=== PATIENT | male | born 2000 | race Caucasian/White ===

== ENCOUNTER 2021-07-01 15:30 | Emergency (ER) | payer OTHER ==
[2021-07-01 15:45] VITALS: BP 119/44
--- NOTE | 2021-07-01 16:02 | ED Physician Documentation ---
History of Present Illness - Stated complaint Stated Complaint: COUGH - Chief complaint Chief Complaint: Resp - Additonal information Additional information: 20-year-old male presents emergency department for evaluation of cough that began about 3 weeks ago. He reports that is particularly worse at night wakes him up from sleep. During the day it is mostly dry but occasionally productive with green sputum. No fevers. He did take an at home rapid Covid test which was negative. He is in the [place] and fully vaccinated though not boosted. Patient has had a a lot of nasal congestion. He has taken no medications. Patient reports that his cough feels similar to when he had swimming induced pulmonary edema at the age of 16 from swimming in cold water. No history of asthma. Non-smoker/vapor. No fevers. Review of Systems Constitutional: denies: Fever, Chills Ears: reports: Reviewed and negative Nose: reports: Rhinorrhea / runny nose, Congestion Throat: reports: Reviewed and negative Cardiac: reports: Reviewed and negative Respiratory: reports: Cough. denies: Dyspnea, Hemoptysis, Wheezing GI: reports: Reviewed and negative : reports: Reviewed and negative Skin: reports: Reviewed and negative Musculoskeletal: reports: Reviewed and negative PD PAST MEDICAL HISTORY - Present Medications Home Medications: Ambulatory Orders Medication Instructions Recorded Confirmed No Known Home Medications 07/01/21 07/01/21 - Allergies Allergies/Adverse Reactions: Allergies Allergy/AdvReac Type Severity Reaction Status Date / Time No Known Drug Allergies Allergy Verified 07/01/21 15:45 PD ED PE NORMAL - General General: Alert and oriented X 3, No acute distress - HEENT HEENT: PERRL - Neck Neck: Supple, no meningeal sign, No adenopathy - Cardiac Cardiac: RRR, No murmur, No gallop - Respiratory Respiratory: No respiratory distress - Abdomen Abdomen: Normal bowel sounds, Soft, Non tender - Back Back: No CVA TTP, No spinal TTP - Derm Derm: Normal color, Warm and dry, No rash - Extremities Extremities: No deformity, No tenderness to palpate, Normal ROM s pain - Neuro Neuro: Alert and oriented X 3, 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 Eye Opening: Spontaneous Motor: Obeys Commands Verbal: Oriented GCS Score: 15 - Psych Psych: Normal mood Results - Vitals Vitals: Vital Signs - 24 hr 07/01/21 15:41 Temperature 36.4 C L Heart Rate 63 Respiratory 14 Rate Blood Pressure 119/44 L O2 Saturation 98 Oxygen O2 Source Room air - Rads (name of study) cxr Radiology: EMP read contemporaneously (No acute cardiopulmonary process) PD MEDICAL DECISION MAKING - ED course Complexity details: reviewed results, re-evaluated patient, considered differential, d/w patient ED course: 20-year-old male presents emergency department for evaluation of a productive cough that is especially worse at night. Began about 3 weeks ago. No fevers, no hemoptysis. Fully vaccinated for COVID-19 and has had a negative home test. Patient reports that his cough feels very similar to when he had swimming induced pulmonary edema. Chest x-ray today does not reveal any obvious focal consolidations or findings of pulmonary edema. Room air saturations 100%. Cardiopulmonary auscultation is unremarkable. He does sound fairly congested and given that the nighttime cough is worse I suspect that he has postnasal drip contributing to the symptoms. I am recommending Sudafed during the day as well as Barnard mist nasal spray or Flonase at night. Cough and symptoms not improved with addressing congestion and postnasal drip the patient will return to the ER for second evaluation. Departure - Departure Disposition: 01 Home, Self Care Clinical Impression: Cough, Post-nasal drip Condition: Stable Record reviewed to determine appropriate education?: Yes Comments: Judson you are seen in the emergency department today for a cough that has been present for about 3 weeks. You also have some congestion. As we discussed at the bedside it is likely that you have postnasal drip at night causing your cough to be worse. I am over the next 2 to 3 days I do recommend that you take Sudafed 30 mg in the morning. This will help with the congestion. Prior to going to bed at night you may benefit from using Barnard mist nasal spray or Flonase nasal spray this will help reduce the congestion thus reducing the postnasal drip and nighttime cough. Your chest x-ray was unremarkable. You do not have findings of pulmonary edema or pneumonia. If you find that despite addressing the postnasal drip your cough does not improve, you have fevers, chest pain or sudden shortness of air you are to return to the ER for second evaluation.
--- NOTE | 2021-07-01 16:19 | XRAY Report ---
PROCEDURE: Chest 1 View X-Ray INDICATIONS: chest pain TECHNIQUE: One view of the chest was acquired. COMPARISON: None FINDINGS: Surgical changes and devices: None. Lungs and pleura: No pleural effusions or pneumothorax. Lungs are clear. Mediastinum: Mediastinal contours appear normal. Heart size is normal. Bones and chest wall: No suspicious bony lesions. Overlying soft tissues appear unremarkable. IMPRESSION: No acute cardiopulmonary findings Reviewed by: Aroldo Pastrana MD on 07/01/2021 3:17 PM [place] Approved by: Aroldo Pastrana MD on 07/01/2021 3:17 PM [place] Station ID: [id number]
== END 2021-07-01 16:38 | disposition home or self-care (01) ==
LOC: ED 15:30
DX: U07.1 COVID-19 (principal)
CPT/HCPCS: 99282; 99284

== ENCOUNTER 2021-09-25 11:23 | Emergency (ER) | payer OTHER ==
[2021-09-25] MEDS ORDERED: lidocaine 1% 20 ML MDV SUBQ ONE (12:15)
--- NOTE | 2021-09-25 13:01 | ED Physician Documentation ---
PD HPI LOWER EXT INJURY - Stated complaint Stated Complaint: RT LEG INJ - Chief complaint Chief Complaint: Laceration - History obtained from History obtained from: Patient - History of Present Illness PD HPI LOW EXT INJURY LOCATION: Right, Lower leg Type of injury: Blunt / blow Where injury occurred: Other (GYM) Timing - onset: Today Timing - duration: Hours Timing - details: Abrupt onset, Still present Improved by: Rest, Immobilization Worsened by: Moving, Palpating Associated symptoms: No: Weakness, Numbness, Tingling, Swelling Similar symptoms before: Diagnosis (laceration) Recently seen: Not recently seen - Additional information Additional information: Previously well 20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 When he landed against the box he lacerated the skin right below his knee. He is able to control bleeding comes in now for suturing PD PAST MEDICAL HISTORY - Past Medical History Cardiovascular: None Respiratory: None Neuro: None Endocrine/Autoimmune: None GI: None : None HEENT: None Psych: None Musculoskeletal: None Derm: None - Past Surgical History Past Surgical History: No - Present Medications Home Medications: Ambulatory Orders Medication Instructions Recorded Confirmed No Known Home Medications 07/01/21 07/01/21 - Allergies Allergies/Adverse Reactions: Allergies Allergy/AdvReac Type Severity Reaction Status Date / Time No Known Drug Allergies Allergy Verified 09/25/21 11:33 - Social History Does the pt smoke?: No Smoking Status: Never smoker Does the pt drink ETOH?: No Does the pt have substance abuse?: No - Immunizations Immunizations are current?: Yes PD ED PE NORMAL - Vitals Vital signs reviewed: Yes (normal) - General General: Alert and oriented X 3, No acute distress, Well developed/nourished - HEENT HEENT: Atraumatic, PERRL, EOMI - Respiratory Respiratory: No respiratory distress - Derm Derm: Normal color, Warm and dry, No rash - Extremities Extremities: No deformity, No edema, Other (4cm flap laceration to the anterior upper calf on the right ) - Neuro Neuro: Alert and oriented X 3, 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, No motor deficit, No sensory deficit, Normal speech Eye Opening: Spontaneous Motor: Obeys Commands Verbal: Oriented GCS Score: 15 - Psych Psych: Normal mood, Normal affect Results - Vitals Vitals: Vital Signs - 24 hr 09/25/21 09/25/21 11:30 13:10 Temperature 37.2 C 36.8 C Heart Rate 74 63 Respiratory 14 18 Rate Blood Pressure 121/66 114/42 L O2 Saturation 97 99 Oxygen O2 Source Room air Procedures - Laceration (location) right calf Wound type: Curved, Flap, Into subcut fat, Clean Neurovascular status: Sensory intact, Motor intact, Vascular intact Anesthesia: Lidocaine 1% Wound preparation: Hibiclens, Irrigated copiously NS, Wound explored, To the base Skin layer closure: Nylon, Interrupted, Size #-0 - enter number (4-0) Other: Patient tolerated well, No complications, Neurovascular intact, Dressing applied, Tetanus UTD PD MEDICAL DECISION MAKING - ED course Complexity details: re-evaluated patient, considered differential, d/w patient ED course: 20-year-old male with a flap-like laceration to the right anterior calf is sutured tolerates this well. Departure - Departure Disposition: 01 Home, Self Care Clinical Impression: Laceration of right calf Condition: Stable Instructions: ED Laceration Ext Sutr Stap Tape Follow-Up: MEGHNA RODRIGUES MD [Primary Care Provider] - Comments: Judson, today it looks like you have a 4 cm laceration to your right calf and this has been sutured and sutures will need to be removed in 10 days. You can wash the area daily pat it dry when you are done. Discharge Date/Time: 09/25/21 13:10
[2021-09-25 13:11] VITALS: BP 114/42
== END 2021-09-25 13:10 | disposition home or self-care (01) ==
LOC: ED 11:23
DX: S81.811A Laceration without foreign body, right lower leg, initial encounter (principal); W26.9XXA Contact with unspecified sharp object(s), initial encounter; Y93.A1 Activity, exercise machines primarily for cardiorespiratory conditioning; Y92.39 Other specified sports and athletic area as the place of occurrence of the external cause
CPT/HCPCS: 12002; 99283

== ENCOUNTER 2022-03-01 08:00 | Outpatient (CLI) | payer OTHER ==
--- NOTE | 2022-03-02 16:29 | XRAY Report ---
PROCEDURE: Cervical Spine 2 View INDICATIONS: NECK PX TECHNIQUE: 3 view(s) of the cervical spine were acquired. COMPARISON: None. FINDINGS: Straightening of usual cervical lordosis, likely positional. Otherwise normal alignment. Ve rtebral body heights maintained. No suspicious lytic or blastic osseous lesion. IMPRESSION: No acute finding or significant degenerative change. Reviewed by: Min Lerma MD on 03/02/2022 4:28 PM PDT Approved by: Min Lerma MD on 03/02/2022 4:28 PM PDT Station ID: [id number]
== END 2022-03-01 23:59 | disposition home or self-care (01) ==
LOC: DI.N 08:00
PROVIDERS: ATTEND Family Medicine
DX: M54.2 Cervicalgia (principal)

== ENCOUNTER 2022-07-13 07:27 | Day surgery (SDC) | payer OTHER ==
[2022-07-13] MEDS ORDERED: LIDOCAINE MPF 2%-EPI 1:200000 20 ML VIAL ONE (07:56)
[2022-07-13] MEDS ORDERED: BUPIVACAINE 0.25% PF 30 ML VIAL ONE ×2 (07:57→08:30)
[2022-07-13] MEDS ORDERED: LACTATED RINGERS 1,000 ML IV ONE ×2 (07:58→09:52)
[2022-07-13] MEDS ORDERED: PROPOFOL 200 MG/20 ML VIAL IVP ONE (08:01)
[2022-07-13] MEDS ORDERED: fentaNYL 100 MCG/2 ML VIAL ONE (08:01)
[2022-07-13] MEDS ORDERED: MIDAZOLAM 2 MG/2 ML VIAL ONE (08:01)
[2022-07-13] MEDS ORDERED: MORPHINE 2 MG/ML CARPUJECT IVP PRN (08:22)
[2022-07-13] MEDS ORDERED: ePHEDrine 50 MG/ML VIAL IVP PRN (08:22)
[2022-07-13] MEDS ORDERED: ONDANSETRON 4 MG/2 ML VIAL IVP PRN (08:22)
[2022-07-13] MEDS ORDERED: METOCLOPRAMIDE 10 MG/2 ML VIAL IVP PRN (08:22)
[2022-07-13] MEDS ORDERED: fentaNYL 100 MCG/2 ML VIAL IVP PRN (08:22)
[2022-07-13] MEDS ORDERED: HYDROmorphone 0.5 MG/0.5 ML SYRINGE IVP PRN (08:22)
[2022-07-13] MEDS ORDERED: ATROPINE ABBOJECT 1 MG/10 ML SYRINGE IVP PRN (08:22)
[2022-07-13] MEDS ORDERED: NALOXONE 0.4 MG/ML VIAL IVP PRN (08:22)
--- NOTE | 2022-07-13 08:22 | ANESTHESIA ---
Pre-Anesthesia VS, & Labs - Diagnosis gynomasia - Procedure excision of bilateral breast tissue Vital Signs: Temp Pulse Resp BP Pulse Ox O2 Flow Rate 36.5 C 56 L 10 L 117/70 100 07/13/22 07:51 07/13/22 07:51 07/13/22 07:51 07/13/22 07:51 07/13/22 07:51 Height: 6 ft Weight (kg): 85 kg Body Mass Index: 25.4 BMI Classification: Overweight - NPO >8 hours Home Medications and Allergies Home Medications: Ambulatory Orders Terbinafine [LamISIL] 250 mg PO DAILY 07/05/22 Terbinafine [LamISIL] 250 mg PO DAILY 07/05/22 Allergies/Adverse Reactions: Allergies Allergy/AdvReac Type Severity Reaction Status Date / Time No Known Drug Allergies Allergy Verified 09/25/21 11:33 Anes History & Medical History - Anesthetic History Anesthesia Complications: reports: No previous complications - Medical History Cardiovascular: reports: None Pulmonary: reports: None Gastrointestinal: reports: Other Urinary: reports: None Neuro: reports: None Musculoskeletal: reports: None Endocrine/Autoimmune: reports: None Blood Disorders: reports: None Skin: reports: Other Smoking Status: Never smoker History of Cancer?: No Exam General: Alert, Oriented x3 Dental: WNL Mouth Opening: Greater than 4 Fingerbreadths Neck Mobility: Normal Mallampati classification: I Thyromental Distance: greater than 6 cm Respiratory: Lungs clear Cardiovascular: Regular rate Plan Anesthesia Type: General Consent for Procedure(s) Verified and Reviewed: Yes Code Status: Attempt Resuscitation ASA classification: 1-Healthy patient Is this case an emergency?: No
[2022-07-13] MEDS ORDERED: ONDANSETRON 4 MG/2 ML VIAL ONE (08:55)
[2022-07-13] MEDS ORDERED: DEXAMETHASONE 4 MG/ML VIAL ONE (08:55)
[2022-07-13] MEDS ORDERED: LACTATED RINGERS 1,000 ML IV SCH (09:00)
[2022-07-13] MEDS ORDERED: BUPIVACAINE 0.25% PF 30 ML VIAL SUBQ ONE ×2 (09:12)
[2022-07-13] MEDS ORDERED: HYDROcod/ACETAM 5/325 MG TABLET PO PRN (10:20)
--- NOTE | 2022-07-13 10:33 | ANESTHESIA POST OP EVALUATION ---
Anesthesia Post Eval - Post Anesthesia Eval Vitals: Last Vital Signs Temp 36.9 C 07/13/22 10:10 Pulse 58 L 07/13/22 10:15 Resp 10 L 07/13/22 10:15 BP 124/79 07/13/22 10:15 Pulse Ox 100 07/13/22 10:15 O2 Flow Rate CV Function Including HR & BP: Stable Pain Control: Satisfactory Nausea & Vomiting: Negative Mental Status: Baseline Respiratory Status: Airway Patent Hydration Status: Satisfactory Anesthesia Complications: None
[2022-07-13 10:35] VITALS: BP 118/73
--- NOTE | 2022-07-13 15:28 | OPERATIVE REPORT ---
Operative Report - General Planned Procedure: bilateral simple mastectomy Pre-Op Diagnosis: bilateral gynecomastia Procedure Performed: bilateral simple mastectomy Post Op Diagnosis: same r>l - Procedure Note Primary Surgeon: kimberly rivera Anesthesia Technique: General LMA, Local Pathology: benign, not sent Estimated Blood Loss (mL): 2 Drain/Tube Type: Other (none) Indications: painful bilateral gynecomastia x 1 year Findings: as above Complications: none - Other Other Information/Narrative: the patient was properly identified brought to the operating room and placed in supine position. Laryngeal mask anesthesia was induced. He was prepped and draped in a sterile fashion. Antibiotics were not given. The right side was the most symptomatic. This side was first approached. Local anesthetic was given bilateral. A infra areolar incision less than half the circumference of the relapse was sharply made. Dissection proceeded with cutting current. A small amount of breast tissue was left under the nipple. By far and the majority of the breast tissue was removed with gentle retraction and cutting current cautery. Hemostasis was assured. Intermediate repair was then performed. Buried interrupted subdermal 3-0 Vicryl sutures were placed. Skin was closed with a running 4-0 Monocryl subcuticular suture. The left side was then approached and the majority of the breast tissue again removed in similar fashion. Only a small amount of breast tissue was left under the nipple. Dressings were applied. He tolerated the procedure well was awakened and brought to recovery in good condition.
== END 2022-07-13 07:28 | disposition home or self-care (01) ==
LOC: SDS 07:27
PROVIDERS: ATTEND Surgery
PROC: 0HBV0ZZ Excision of Bilateral Breast, Open Approach (ICD-10-PCS; principal; 2022-07-13 08:30)
DX: N62 Hypertrophy of breast (principal)
CPT/HCPCS: 19300; J7120

== ENCOUNTER 2023-03-06 10:42 | Emergency (ER) | payer OTHER ==
[2023-03-06 11:56] VITALS: BP 143/91; O2SAT 100
--- NOTE | 2023-03-06 12:31 | ED Physician Documentation ---
PD HPI LOWER EXT INJURY - Stated complaint Stated Complaint: RT TOE INJ - Chief complaint Chief Complaint: Wound - History obtained from History obtained from: Patient - History of Present Illness PD HPI LOW EXT INJURY LOCATION: Left, Toe (great) Type of injury: Blunt / blow Where injury occurred: Street Timing - onset: How many days ago (2), How many weeks ago (3) Timing - details: Gradual onset, Still present Improved by: Rest Worsened by: Palpating Associated symptoms: Swelling, Discolored. 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 He denies any likelihood of fracture associated with this. He is here today thinking that maybe if the toenail was removed he will avoid infection. Review of Systems Constitutional: denies: Fever Nose: denies: Congestion Respiratory: denies: Cough GI: denies: Vomiting, Diarrhea PD PAST MEDICAL HISTORY - Past Medical History Cardiovascular: None Respiratory: None Neuro: None Endocrine/Autoimmune: None GI: Other : None HEENT: None Psych: None Musculoskeletal: None Derm: Other - Past Surgical History Past Surgical History: No - Present Medications Home Medications: Ambulatory Orders Medication Instructions Recorded Confirmed No Known Home Medications 03/06/23 03/06/23 - Allergies Allergies/Adverse Reactions: Allergies Allergy/AdvReac Type Severity Reaction Status Date / Time No Known Drug Allergies Allergy Verified 03/06/23 10:56 - Social History Does the pt smoke?: No Smoking Status: Never smoker Does the pt drink ETOH?: No Does the pt have substance abuse?: No - Immunizations Immunizations are current?: Yes PD ED PE NORMAL - Vitals Vital signs reviewed: Yes (normal with wide pulse pressure ) - General General: Alert and oriented X 3, No acute distress, Well developed/nourished - HEENT HEENT: Atraumatic, PERRL, EOMI - Respiratory Respiratory: No respiratory distress - Derm Derm: Normal color, Warm and dry, No rash - Extremities Extremities: Other (There is a hematoma under the left great toenail. The nail is still intact along the sides and the back. 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, No motor deficit, No sensory deficit, Normal speech Eye Opening: Spontaneous Motor: Obeys Commands Verbal: Oriented GCS Score: 15 - Psych Psych: Normal mood, Normal affect Results - Vitals Vitals: Vital Signs - 24 hr 03/06/23 03/06/23 10:53 11:55 Temperature 37.2 C 36.4 C L Heart Rate 98 96 Respiratory 16 14 Rate Blood Pressure 119/58 L 143/91 H O2 Saturation 98 100 Oxygen O2 Source Room air PD Medical Decision Making - ED course Complexity details: considered differential, d/w patient ED course: 22-year-old male with a partially avulsed toenail and a subungual hematoma presents to the emergency department wanting to have the nail removed. I discouraged the patient from this. I did not find any evidence of fracture on physical examination. The patient was adamant that he did not think he had any type of fracture from the injury he had. I discussed treatment options with the patient and he would like to be conservative. Departure - Departure Disposition: 01 Home, Self Care Clinical Impression: Toenail avulsion Qualifiers: Encounter type: initial encounter Qualified Code(s): S91.209A - Unspecified open wound of unspecified toe(s) with damage to nail, initial encounter Condition: Stable Instructions: ED Avulsion Nail Complete Follow-Up: GENNA Valles [Provider Group] Comments: Judson this toenail you have looks a great will be adequate protection against infection and my recommendation is not to have it removed today. It does not appear there is any evidence of a fracture. The nail will likely loosen and fall off over the next several weeks and it will take more than 8 months for the nail to grow in completely.
== END 2023-03-06 12:37 | disposition home or self-care (01) ==
LOC: ED 10:42
DX: S91.202A Unspecified open wound of left great toe with damage to nail, initial encounter (principal); W22.8XXA Striking against or struck by other objects, initial encounter; Y93.02 Activity, running
CPT/HCPCS: 99281; 99283